=== PATIENT | female | born 1970 | race Caucasian/White ===

== ENCOUNTER 2016-10-10 10:36 | Emergency (ER) | payer MEDICAID ==
[~2016-10-10] VITALS: Ht 157.5 cm; Wt 137.0 kg
[~2016-10-10 10:36] MED LIST: DSS100 PO; OMEP20 PO
[2016-10-10] MEDS ORDERED: IBUP-1681 PO (10:53)
[2016-10-10 11:02] LABS: GLUCOSE,POINT OF CARE 109 MG/DL (70-110)
[2016-10-10] MEDS ORDERED: SODIUM CHLORIDE 0.9% 1,000 ML IV ONE (11:30)
[2016-10-10] MEDS ORDERED: ONDANSETRON HCL 4 MG/2 ML VIAL IVP ONE (11:30)
[2016-10-10] MEDS ORDERED: KETOROLAC TROMETHAMINE 30 MG/ML VIAL IVP ONE (11:30)
[2016-10-10] MEDS ORDERED: BARIUM SULFATE 0.1% SUSPENSION 450 ML BOTTLE PO ONE (11:30)
[2016-10-10 11:33] LABS: BASOPHILS # (AUTO) 0.05 K/uL (0.00-0.20); BASOPHILS % (AUTO) 0.4 % (0.0-2.0); EOSINOPHILS # (AUTO) 0.24 K/uL (0.00-0.70); EOSINOPHILS % (AUTO) 2.06 % (1.0-6.0); HEMATOCRIT 39.4 % (36-46); HEMOGLOBIN 13.1 g/dL (12.0-16.0); LYMPHOCYTES # (AUTO) 3.1 K/uL (1.0-4.8); LYMPHOCYTES % (AUTO) 26.6 % (22.0-44.0); MEAN CORPUSCULAR HEMOGLOBIN 27.7 pg (26.0-34.0); MEAN CORPUSCULAR HGB CONC 33.3 G/dL (31.0-37.0); MEAN CORPUSCULAR VOLUME 83 fL (80-100); MONOCYTES # (AUTO) 0.8 K/uL (0.1-1.0); MONOCYTES % (AUTO) 6.9 % (2.0-9.0); NEUTROPHILS # (AUTO) 7.4 K/uL (1.8-7.7); NEUTROPHILS % (AUTO) 64.1 % (40.0-70.0); PLATELET COUNT (AUTO) 299 K/uL (150-450); RED BLOOD CELL COUNT(AUTO) 4.73 MIL/uL (4.00-5.20); RED CELL DISTRIBUTION WIDTH 15.4 % (11.5-14.5); WHITE BLOOD COUNT (AUTO) 11.6 K/uL (4.5-11.0)
[2016-10-10 11:42] LABS: ANION GAP 12 mmol/L (8-16); CALCIUM, TOTAL 8.7 mg/dL (8.8-10.5); CARBON DIOXIDE 24 mmol/L (22-29); CHLORIDE 101 mmol/L (98-107); CREATININE 0.59 mg/dL (0.60-1.30); GLOMERULAR FILTR. RATE CALC > 60 mL/min (>60); POTASSIUM 3.9 mmol/L (3.5-5.1); SODIUM SERUM 137 mmol/L (136-145); UREA NITROGEN, BLOOD 11 mg/dL (7-18)
[2016-10-10 11:47] LABS: ALANINE AMINOTRANSFERASE 37 U/L (12-78); ALBUMIN 3.4 g/dL (3.4-5.0); ASPARTATE AMINOTRANSFERASE 25 U/L (15-37); BILIRUBIN,TOTAL 0.3 mg/dL (0.1-1.0); TOTAL PROTEIN, SERUM 7.7 g/dL (6.4-8.2)
[2016-10-10] MEDS ORDERED: IOVERSOL 350 MG/ML 100 ML VIAL ONE (12:13)
[2016-10-10] MEDS ORDERED: SODIUM CHLORIDE 0.9% 100 ML ONE (12:13)
[2016-10-10 13:17] LABS: APPEARANCE,URINE CLOUDY (CLEAR); GLUCOSE, URINE (UA) NEGATIVE (NEGATIVE); KETONES,URINE NEGATIVE (NEGATIVE); LEUKOCYTE ESTERASE ,URINE SMALL (NEGATIVE); OCCULT BLOOD,URINE LARGE (NEGATIVE); PROTEIN,URINE POS 1+ (NEGATIVE)
[2016-10-10 13:41] LABS: ADD UA MICROSCOPIC YES
[2016-10-10 13:46] LABS: RBC,URINE >100 /HPF (0-2); SQUAMOUS EPITHELIAL CELL,UR Few /LPF (None Seen)
[2016-10-10] MEDS ORDERED: MORPHINE SULFATE 4 MG/ML SYRINGE IVP ONE (15:15)
[2016-10-10 17:05] VITALS: BP 148/80
== END 2016-10-10 17:11 | disposition home or self-care (01) ==
LOC: EMS 10:37
DX: R10.31 Right lower quadrant pain (principal); E66.01 Morbid (severe) obesity due to excess calories; F32.9 Major depressive disorder, single episode, unspecified; K59.00 Constipation, unspecified; I10 Essential (primary) hypertension; Z90.49 Acquired absence of other specified parts of digestive tract
CPT/HCPCS: 36415; 51701; 74177; 80053; 81001; 82962; 83690; 84703; 85025; 96361; 96374; 96375; 99285; J1885; J2270; J2405; J7030; J7050; Q9967; Z7610

== ENCOUNTER 2016-12-14 18:58 | Emergency (ER) | payer MEDICAID ==
[~2016-12-14] VITALS: Ht 154.9 cm; Wt 140.4 kg
[~2016-12-14 18:58] MED LIST changes: +IBUP-1681 PO
[2016-12-14 20:01] LABS: BASOPHILS # (AUTO) 0.04 K/uL (0.00-0.20); BASOPHILS % (AUTO) 0.2 % (0.0-2.0); EOSINOPHILS # (AUTO) 0.21 K/uL (0.00-0.70); EOSINOPHILS % (AUTO) 1.35 % (1.0-6.0); HEMATOCRIT 39.4 % (36-46); HEMOGLOBIN 12.8 g/dL (12.0-16.0); LYMPHOCYTES # (AUTO) 3.2 K/uL (1.0-4.8); LYMPHOCYTES % (AUTO) 20.2 % (22.0-44.0); MEAN CORPUSCULAR HEMOGLOBIN 26.6 pg (26.0-34.0); MEAN CORPUSCULAR HGB CONC 32.6 G/dL (31.0-37.0); MEAN CORPUSCULAR VOLUME 81 fL (80-100); MONOCYTES # (AUTO) 0.9 K/uL (0.1-1.0); MONOCYTES % (AUTO) 5.8 % (2.0-9.0); NEUTROPHILS # (AUTO) 11.5 K/uL (1.8-7.7); NEUTROPHILS % (AUTO) 72.5 % (40.0-70.0); PLATELET COUNT (AUTO) 302 K/uL (150-450); RED BLOOD CELL COUNT(AUTO) 4.83 MIL/uL (4.00-5.20); RED CELL DISTRIBUTION WIDTH 15.2 % (11.5-14.5); WHITE BLOOD COUNT (AUTO) 15.9 K/uL (4.5-11.0)
[2016-12-14 20:40] LABS: ANION GAP 15 mmol/L (8-16); CALCIUM, TOTAL 9.7 mg/dL (8.8-10.5); CARBON DIOXIDE 21 mmol/L (22-29); CHLORIDE 100 mmol/L (98-107); CREATININE 0.76 mg/dL (0.60-1.30); GLOMERULAR FILTR. RATE CALC > 60 mL/min (>60); POTASSIUM 3.6 mmol/L (3.5-5.1); SODIUM SERUM 136 mmol/L (136-145); UREA NITROGEN, BLOOD 19 mg/dL (7-18)
[2016-12-14 20:44] LABS: ALANINE AMINOTRANSFERASE 36 U/L (12-78); ALBUMIN 3.8 g/dL (3.4-5.0); ASPARTATE AMINOTRANSFERASE 21 U/L (15-37); BILIRUBIN,TOTAL 0.4 mg/dL (0.1-1.0); TOTAL PROTEIN, SERUM 8.3 g/dL (6.4-8.2)
[2016-12-14] MEDS ORDERED: HYDROmorphone 2 MG/ML SYRINGE IVP ONE ×2 (22:00→23:30)
[2016-12-14] MEDS ORDERED: PANTOPRAZOLE SODIUM 40 MG/VIAL IVP ONE (22:00)
[2016-12-14] MEDS ORDERED: SODIUM CHLORIDE 0.9% 1,000 ML IV ONE ×2 (22:00)
[2016-12-14] MEDS ORDERED: ONDANSETRON HCL 4 MG/2 ML VIAL IVP ONE ×2 (22:00)
[2016-12-14] MEDS ORDERED: BARIUM SULFATE 0.1% SUSPENSION 450 ML BOTTLE PO ONE (22:00)
[2016-12-14] MEDS ORDERED: SODIUM CHLORIDE 0.9% 100 ML ONE (23:39)
[2016-12-14] MEDS ORDERED: IOVERSOL 350 MG/ML 150 ML VIAL ONE (23:39)
[2016-12-15 03:12] VITALS: BP 132/73
[2016-12-16] MEDS ORDERED: ACET1TAB12 PO (15:29)
[2016-12-16] MEDS ORDERED: METF500T4 PO (15:29)
[2016-12-16] MEDS ORDERED: ONDA4 PO (15:29)
[2016-12-16] MEDS ORDERED: LIPA1CAP29 PO (15:29)
[2016-12-16] MEDS ORDERED: LIPA1CAP31 PO (18:38)
== END 2016-12-15 03:18 | disposition home or self-care (01) ==
LOC: EMS 18:59
DX: K43.9 Ventral hernia without obstruction or gangrene (principal); R10.10 Upper abdominal pain, unspecified; E66.01 Morbid (severe) obesity due to excess calories; Z68.43 Body mass index [BMI] 50.0-59.9, adult
CPT/HCPCS: 74177; 80053; 83690; 84703; 85025; 96361; 96374; 96375; 99285; C9113; J1170; J2405; J7030; J7050; Q9967; Z7610

== ENCOUNTER 2017-06-16 11:02 | Emergency (ER) | payer MEDICAID ==
[~2017-06-16] VITALS: Ht 165.1 cm; Wt 136.4 kg
[~2017-06-16 11:02] MED LIST changes: +ACET1TAB12 PO; -DSS100 PO; -IBUP-1681 PO; +LIPA1CAP31 PO; +METF500T4 PO; -OMEP20 PO; +ONDA4 PO
[2017-06-16] MEDS ORDERED: METR500 PO (11:38)
[2017-06-16] MEDS ORDERED: BUPR100 PO (11:38)
[2017-06-16] MEDS ORDERED: ESOM20CA31 PO (11:38)
[2017-06-16 11:43] LABS: GLUCOSE,POINT OF CARE 187 MG/DL (70-110)
[2017-06-16] MEDS ORDERED: MORPHINE SULFATE 4 MG/ML SYRINGE IVP ONE (12:45)
[2017-06-16] MEDS ORDERED: BARIUM SULFATE 0.1% SUSPENSION 450 ML BOTTLE PO ONE (12:45)
[2017-06-16] MEDS ORDERED: ONDANSETRON HCL 4 MG/2 ML VIAL IVP ONE (12:45)
[2017-06-16 12:51] LABS: BASOPHILS % (AUTO) 0.6 % (0.0-2.0); EOSINOPHILS % (AUTO) 2.9 % (1.0-6.0); HEMATOCRIT 39.7 % (36-46); HEMOGLOBIN 13.2 g/dL (12.0-16.0); LYMPHOCYTES # (AUTO) 3.3 K/uL (1.0-4.8); LYMPHOCYTES % (AUTO) 24.4 % (22.0-44.0); MEAN CORPUSCULAR HEMOGLOBIN 28.2 pg (26.0-34.0); MEAN CORPUSCULAR HGB CONC 33.3 G/dL (31.0-37.0); MEAN CORPUSCULAR VOLUME 85 fL (80-100); MONOCYTES # (AUTO) 0.9 K/uL (0.1-1.0); MONOCYTES % (AUTO) 6.8 % (2.0-9.0); NEUTROPHILS % (AUTO) 65.3 % (40.0-70.0); PLATELET COUNT (AUTO) 255 K/uL (150-450); RED BLOOD CELL COUNT(AUTO) 4.68 MIL/uL (4.00-5.20); RED CELL DISTRIBUTION WIDTH 15.2 % (11.5-14.5)
[2017-06-16 12:52] LABS: APPEARANCE,URINE TURBID (CLEAR); BILIRUBIN,URINE NEGATIVE (NEGATIVE); GLUCOSE, URINE (UA) NEGATIVE (NEGATIVE); KETONES,URINE NEGATIVE (NEGATIVE); LEUKOCYTE ESTERASE ,URINE MODERATE (NEGATIVE); NITRATE,URINE POSITIVE (NEGATIVE); OCCULT BLOOD,URINE LARGE (NEGATIVE); PROTEIN,URINE SEE CONFIRM (NEGATIVE); UROBILINOGEN,URINE 0.2 mg/dL (<=1.0)
[2017-06-16 12:54] LABS: ANION GAP 7 mmol/L (8-16); CALCIUM, TOTAL 9.2 mg/dL (8.8-10.5); CARBON DIOXIDE 27 mmol/L (22-29); CHLORIDE 102 mmol/L (98-107); GLOMERULAR FILTR. RATE CALC > 60 mL/min (>60); GLUCOSE,RANDOM 167 mg/dL (70-110); SODIUM SERUM 136 mmol/L (136-145); UREA NITROGEN, BLOOD 13 mg/dL (7-18)
[2017-06-16 13:12] LABS: SULFOSALICYLIC ACID,URINE 3+ (Negative)
[2017-06-16 13:14] LABS: BACTERIA,URINE Many /HPF (None Seen); RBC,URINE 51-100 /HPF (0-2); WBC,URINE 51-100 /HPF (0-5)
[2017-06-16 13:15] LABS: ALANINE AMINOTRANSFERASE 44 U/L (12-78); ALBUMIN 3.2 g/dL (3.4-5.0); ALKALINE PHOSPHATASE 84 U/L (46-116); ASPARTATE AMINOTRANSFERASE 34 U/L (15-37); BILIRUBIN,TOTAL 0.3 mg/dL (0.1-1.0); LIPASE 99 U/L (73-393); TOTAL PROTEIN, SERUM 7.3 g/dL (6.4-8.2)
[2017-06-16 13:15] LABS: SQUAMOUS EPITHELIAL CELL,UR Many /LPF (None Seen)
[2017-06-16 13:18] LABS: MUCUS,URINE Rare LPF (None Seen)
[2017-06-16] MEDS ORDERED: IOVERSOL 350 MG/ML 150 ML VIAL ONE (13:56)
[2017-06-16] MEDS ORDERED: MORPHINE SULFATE 2 MG/ML SYRINGE IVP ONE (14:45)
[2017-06-16] MEDS ORDERED: LEVOFLOXACIN 500 MG/D5% WATER 100 ML IV ONE (15:45)
[2017-06-16] MEDS ORDERED: CefTRIAXone SODIUM 1 GM in DEXTROSE 5%-WATER 10 ML IV ONE (15:45)
[2017-06-16] MEDS ORDERED: HYDROCODONE/ACETAMINOPHEN 5-325 MG TABLET PO ONE (16:45)
[2017-06-16 17:08] VITALS: BP 126/69
== END 2017-06-16 17:19 | disposition home or self-care (01) ==
LOC: EMS 11:04
DX: N39.0 Urinary tract infection, site not specified (principal); E11.9 Type 2 diabetes mellitus without complications; E66.01 Morbid (severe) obesity due to excess calories; Z68.43 Body mass index [BMI] 50.0-59.9, adult
CPT/HCPCS: 36415; 74177; 80053; 81001; 82962; 83690; 84703; 85025; 87077; 87086; 87186; 96374; 96375; 96376; 99285; J0696; J1956; J2270 ×2; J2405; J7060; Q9967; Z7610

== ENCOUNTER 2018-01-01 09:42 | Inpatient (IN) | payer MEDICAID ==
[~2018-01-01] VITALS: Ht 160 cm; Wt 154.5 kg
[~2018-01-01 09:42] MED LIST changes: +BUPR100 PO; +ESOM20CA31 PO; -METF500T4 PO; +METF500T6 PO; +METR500 PO
[2018-01-01 10:03] LABS: GLUCOSE,POINT OF CARE 147 MG/DL (70-110)
[2018-01-01 10:20] LABS: BASOPHILS % (AUTO) 0.6 % (0.0-2.0); EOSINOPHILS % (AUTO) 2.8 % (1.0-6.0); HEMATOCRIT 41.4 % (36-46); HEMOGLOBIN 13.9 g/dL (12.0-16.0); LYMPHOCYTES # (AUTO) 2.6 K/uL (1.0-4.8); LYMPHOCYTES % (AUTO) 25.1 % (22.0-44.0); MEAN CORPUSCULAR HEMOGLOBIN 29.6 pg (26.0-34.0); MEAN CORPUSCULAR HGB CONC 33.7 G/dL (31.0-37.0); MEAN CORPUSCULAR VOLUME 88 fL (80-100); MONOCYTES # (AUTO) 0.6 K/uL (0.1-1.0); MONOCYTES % (AUTO) 5.6 % (2.0-9.0); NEUTROPHILS # (AUTO) 6.9 K/uL (1.8-7.7); NEUTROPHILS % (AUTO) 65.9 % (40.0-70.0); PLATELET COUNT (AUTO) 251 K/uL (150-450); RED BLOOD CELL COUNT(AUTO) 4.71 MIL/uL (4.00-5.20); RED CELL DISTRIBUTION WIDTH 14.5 % (11.5-14.5)
[2018-01-01 10:28] LABS: ANION GAP 7 mmol/L (8-16); CALCIUM, TOTAL 8.6 mg/dL (8.8-10.5); CARBON DIOXIDE 26 mmol/L (22-29); CHLORIDE 101 mmol/L (98-107); CREATININE 0.59 mg/dL (0.60-1.30); GLOMERULAR FILTR. RATE CALC > 60 mL/min (>60); GLUCOSE,RANDOM 150 mg/dL (70-110); POTASSIUM 4.1 mmol/L (3.5-5.1); SODIUM SERUM 134 mmol/L (136-145); UREA NITROGEN, BLOOD 8 mg/dL (7-18)
[2018-01-01 10:34] LABS: ALANINE AMINOTRANSFERASE 58 U/L (12-78); ALBUMIN 3.1 g/dL (3.4-5.0); ALKALINE PHOSPHATASE 85 U/L (46-116); ASPARTATE AMINOTRANSFERASE 41 U/L (15-37); BILIRUBIN,TOTAL 0.4 mg/dL (0.1-1.0); LIPASE 148 U/L (73-393); TOTAL PROTEIN, SERUM 7.5 g/dL (6.4-8.2)
[2018-01-01] MEDS ORDERED: MORPHINE SULFATE 4 MG/ML SYRINGE IVP ONE ×2 (11:30→13:30)
[2018-01-01] MEDS ORDERED: ONDANSETRON HCL 4 MG/2 ML VIAL IVP ONE ×2 (11:30→16:30)
[2018-01-01] MEDS ORDERED: SODIUM CHLORIDE 0.9% 1,000 ML IV ONE (11:30)
[2018-01-01 12:01] LABS: CREATINE KINASE MB 0.8 ng/mL (0-5); CREATINE KINASE, TOTAL 100 U/L (26-192)
[2018-01-01] MEDS ORDERED: METOCLOPRAMIDE HCL 5 MG/ML 2 ML VIAL IVP ONE (12:25)
[2018-01-01 12:29] LABS: APPEARANCE,URINE CLEAR (CLEAR); BILIRUBIN,URINE NEGATIVE (NEGATIVE); GLUCOSE, URINE (UA) NEGATIVE (NEGATIVE); KETONES,URINE NEGATIVE (NEGATIVE); LEUKOCYTE ESTERASE ,URINE NEGATIVE (NEGATIVE); NITRATE,URINE NEGATIVE (NEGATIVE); OCCULT BLOOD,URINE NEGATIVE (NEGATIVE); PROTEIN,URINE NEGATIVE (NEGATIVE); UROBILINOGEN,URINE 0.2 mg/dL (<=1.0)
[2018-01-01] MEDS ORDERED: BARIUM SULFATE 0.1% SUSPENSION 450 ML BOTTLE PO ONE (12:45)
[2018-01-01] MEDS ORDERED: IOVERSOL 350 MG/ML 150 ML VIAL ONE (13:56)
[2018-01-01] MEDS ORDERED: SODIUM CHLORIDE 0.9% 100 ML ONE (13:56)
[2018-01-01] MEDS ORDERED: HYDROmorphone 2 MG/ML SYRINGE IVP ONE ×2 (16:30→19:00)
[2018-01-01] MEDS ORDERED: MAGNESIUM HYDROXIDE SUSPENSION 30 ML UDCUP PO PRN (19:00)
[2018-01-01] MEDS ORDERED: ZOLPIDEM TARTRATE 5 MG TABLET PO PRN (19:00)
[2018-01-01] MEDS ORDERED: IPRATROPIUM BROMIDE 0.5 MG/2.5 ML NEB SOLUTION NEB PRN (19:00)
[2018-01-01] MEDS ORDERED: ALBUTEROL SULFATE 2.5 MG/0.5 ML NEB SOLUTION NEB PRN (19:00)
[2018-01-01] MEDS ORDERED: ACETAMINOPHEN 325 MG TABLET PO PRN ×2 (19:00→19:45)
[2018-01-01] MEDS ORDERED: BISACODYL 10 MG RECTAL RECTAL SUPPOSITORY PR PRN (19:00)
[2018-01-01] MEDS ORDERED: ONDANSETRON HCL 4 MG/2 ML VIAL IVP PRN ×2 (19:00→19:45)
[2018-01-01] MEDS ORDERED: MORPHINE SULFATE 2 MG/ML SYRINGE IVP PRN (19:00)
[2018-01-01] MEDS ORDERED: 0.9% SODIUM CHLORIDE 10 ML SYRINGE IVP PRN (19:45)
[2018-01-01] MEDS: DOCUSATE SODIUM 100 MG CAPSULE PO SCH (20:02)
[2018-01-01] MEDS: HYDROmorphone 2 MG/ML SYRINGE IVP PRN (21:34)
[2018-01-01] MEDS: HEPARIN SODIUM,PORCINE 5,000 UNITS/ML VIAL SQ SCH (23:13)
[2018-01-02] MEDS: HYDROmorphone 2 MG/ML SYRINGE IVP PRN ×5 (02:40→17:09)
[2018-01-02 07:44] LABS: GLUCOSE,POINT OF CARE 145 MG/DL (70-110)
[2018-01-02 08:46] VITALS: BP 131/89
[2018-01-02] MEDS: PANTOPRAZOLE SODIUM 40 MG/VIAL IVP SCH (09:02)
[2018-01-02] MEDS: HEPARIN SODIUM,PORCINE 5,000 UNITS/ML VIAL SQ SCH ×2 (09:02→17:07)
[2018-01-02] MEDS: DOCUSATE SODIUM 100 MG CAPSULE PO SCH ×2 (09:03→20:29)
[2018-01-02 11:37] VITALS: BP 126/86
[2018-01-02] MEDS ORDERED: LIPASE PO SCH (12:00)
[2018-01-02] MEDS ORDERED: PROTEASE PO SCH (12:00)
[2018-01-02] MEDS ORDERED: AMYLASE PO SCH (12:00)
[2018-01-02] MEDS: INSULIN LISPRO 100 UNITS/ML SQ PRN ×3 (12:54→20:32)
[2018-01-02] MEDS ORDERED: GLUCAGON,HUMAN RECOMBINANT 1 MG VIAL IM PRN (13:00)
[2018-01-02] MEDS ORDERED: PNEUMOCOCCAL VACCINE POLYVALENT 0.5 ML VIAL [PPSV23] IM ONE (13:15)
[2018-01-02 15:26] VITALS: BP 139/78
[2018-01-02] MEDS: AMYLASE/LIPASE/PROTEASE 30/6/19 MU DR CAPSULE PO SCH (17:47)
[2018-01-02 19:47] VITALS: BP 124/78
[2018-01-02] MEDS: BuPROPion HCL 100 MG TABLET PO SCH (20:29)
[2018-01-02] MEDS ORDERED: INSULIN LISPRO 100 UNITS/ML SQ PRN (21:30)
[2018-01-02] MEDS ORDERED: DEXTROSE 50%-WATER 25 GM/50 ML SYG IVP PRN (21:30)
[2018-01-02 23:24] LABS: GLUCOMETER DEV NAME(LOC) 5S 2Q; GLUCOSE,POINT OF CARE 159 MG/DL (70-110)
[2018-01-02 23:24] LABS: GLUCOMETER DEV NAME(LOC) 5S 2Q; GLUCOSE,POINT OF CARE 147 MG/DL (70-110)
[2018-01-03 00:07] VITALS: BP 145/90
[2018-01-03] MEDS: HEPARIN SODIUM,PORCINE 5,000 UNITS/ML VIAL SQ SCH ×2 (00:26→09:51)
[2018-01-03 04:18] VITALS: BP 128/83
[2018-01-03] MEDS: HYDROCODONE/ACETAMINOPHEN 5-325 MG TABLET PO PRN ×2 (06:17→10:35)
[2018-01-03 07:35] VITALS: BP 140/53
[2018-01-03] MEDS: DOCUSATE SODIUM 100 MG CAPSULE PO SCH (09:51)
[2018-01-03] MEDS: AMYLASE/LIPASE/PROTEASE 30/6/19 MU DR CAPSULE PO SCH (09:51)
[2018-01-03] MEDS: PANTOPRAZOLE SODIUM 40 MG/VIAL IVP SCH (09:51)
[2018-01-03] MEDS: BuPROPion HCL 100 MG TABLET PO SCH (09:51)
[2018-01-03 11:57] VITALS: BP 137/79
[2018-01-03] MEDS ORDERED: HYDR-4061 PO (13:57)
[2018-01-04 21:49] LABS: GLUCOMETER DEV NAME(LOC) 5N 2S; GLUCOSE,POINT OF CARE 139 MG/DL (70-110)
[2018-01-04 21:49] LABS: GLUCOMETER DEV NAME(LOC) 5N 2S; GLUCOSE,POINT OF CARE 196 MG/DL (70-110)
== END 2018-01-03 14:30 | disposition home or self-care (01) | DRG 254 ==
LOC: EMS 09:43 → 4E 01-02 00:30 → 5S 01-02 05:00
PROVIDERS: ADMIT Hospitalist; ATTEND Hospitalist
DX: K46.9 Unspecified abdominal hernia without obstruction or gangrene (principal); E66.01 Morbid (severe) obesity due to excess calories; M19.90 Unspecified osteoarthritis, unspecified site; F32.9 Major depressive disorder, single episode, unspecified; K42.9 Umbilical hernia without obstruction or gangrene; K21.9 Gastro-esophageal reflux disease without esophagitis; E11.9 Type 2 diabetes mellitus without complications; Z68.44 Body mass index [BMI] 60.0-69.9, adult; Z90.49 Acquired absence of other specified parts of digestive tract
CPT/HCPCS: 74177; 90471; 93005; C9113; J1170; J1644; J2270; J2405; J2765; J7030; J7050

== ENCOUNTER 2019-11-17 11:59 | Emergency (ER) | payer MEDICAID ==
[~2019-11-17] VITALS: Ht 152.4 cm; Wt 136.4 kg
[~2019-11-17 11:59] MED LIST changes: -ACET1TAB12 PO; -BUPR100 PO; -ESOM20CA31 PO; +HYDR-4061 PO; -LIPA1CAP31 PO; -METF500T6 PO; -METR500 PO; -ONDA4 PO
[2019-11-17] MEDS ORDERED: METF-960 PO (12:04)
[2019-11-17] MEDS ORDERED: INSULIN SQ (12:04)
[2019-11-17] MEDS ORDERED: SODIUM CHLORIDE 0.9% 1,000 ML IV ONE (12:45)
[2019-11-17] MEDS ORDERED: MORPHINE SULFATE 4 MG/ML SYRINGE IVP ONE ×2 (12:45→17:45)
[2019-11-17] MEDS ORDERED: ONDANSETRON HCL 4 MG/2 ML VIAL IVP ONE (12:45)
[2019-11-17 13:14] LABS: BASOPHILS % (AUTO) 0.9 % (0.0-2.0); HEMATOCRIT 41.3 % (36-46); HEMOGLOBIN 13.9 g/dL (12.0-16.0); LYMPHOCYTES # (AUTO) 2.5 K/uL (1.0-4.8); LYMPHOCYTES % (AUTO) 25.3 % (22.0-44.0); MEAN CORPUSCULAR HEMOGLOBIN 30.1 pg (26.0-34.0); MEAN CORPUSCULAR HGB CONC 33.6 G/dL (31.0-37.0); MEAN CORPUSCULAR VOLUME 90 fL (80-100); MONOCYTES # (AUTO) 0.7 K/uL (0.1-1.0); MONOCYTES % (AUTO) 7.3 % (2.0-9.0); NEUTROPHILS # (AUTO) 6.3 K/uL (1.8-7.7); NEUTROPHILS % (AUTO) 64.5 % (40.0-70.0); PLATELET COUNT (AUTO) 246 K/uL (150-450); RED CELL DISTRIBUTION WIDTH 13.5 % (11.5-14.5)
[2019-11-17 13:23] LABS: CREATININE 1.23 mg/dL (0.60-1.30); POTASSIUM 3.7 mmol/L (3.5-5.1)
[2019-11-17 13:29] LABS: ALBUMIN 3.3 g/dL (3.4-5.0); BILIRUBIN,TOTAL 0.3 mg/dL (0.1-1.0); TOTAL PROTEIN, SERUM 7.8 g/dL (6.4-8.2)
[2019-11-17 13:43] LABS: PROTHROMBIN TIME 10.4 SEC (9.4-11.6)
[2019-11-17 18:46] VITALS: BP 126/72
== END 2019-11-17 18:57 | disposition home or self-care (01) ==
LOC: EMS 12:02
DX: K43.9 Ventral hernia without obstruction or gangrene (principal)
CPT/HCPCS: 36415; 71045; 74176; 80053; 82962; 83690; 84484; 85025; 85610; 93005; 96374; 96375; 96376; 99285; J2270; J2405; J7030

== ENCOUNTER 2021-01-14 08:57 | Emergency (ER) | payer MEDICAID ==
[~2021-01-14] VITALS: Ht 154.9 cm; Wt 140.9 kg
[~2021-01-14 08:57] MED LIST changes: -HYDR-4061 PO; +INSULIN SQ; +METF-960 PO
[2021-01-14] MEDS ORDERED: ONDANSETRON HCL 4 MG/2 ML VIAL IVP ONE (09:15)
[2021-01-14] MEDS ORDERED: SODIUM CHLORIDE 0.9% 1,000 ML IV ONE (09:15)
[2021-01-14 09:34] LABS: COVID AG,FIA SOURCE NASOPHARYNGEAL
[2021-01-14] MEDS ORDERED: PB/HYOSCY/ATR/SCOP/LIDO/MAALOX 55 ML BOTTLE PO ONE (09:45)
[2021-01-14 10:00] LABS: INFLUENZA TYPE A NEGATIVE FOR TYPE A (NEGATIVE); INFLUENZA TYPE B NEGATIVE FOR TYPE B (NEGATIVE)
[2021-01-14 10:05] LABS: BASOPHILS % (AUTO) 0.8 % (0.0-2.0); EOSINOPHILS % (AUTO) 3.3 % (1.0-6.0); HEMATOCRIT 39.1 % (36-46); HEMOGLOBIN 12.7 g/dL (12.0-16.0); LYMPHOCYTES % (AUTO) 29.1 % (22.0-44.0); MEAN CORPUSCULAR HGB CONC 32.4 G/dL (31.0-37.0); MEAN CORPUSCULAR VOLUME 90 fL (80-100); MONOCYTES # (AUTO) 0.8 K/uL (0.1-1.0); MONOCYTES % (AUTO) 7.8 % (2.0-9.0); NEUTROPHILS # (AUTO) 6.1 K/uL (1.8-7.7); PLATELET COUNT (AUTO) 251 K/uL (150-450); RED BLOOD CELL COUNT(AUTO) 4.37 MIL/uL (4.00-5.20); RED CELL DISTRIBUTION WIDTH 14.2 % (11.5-14.5)
[2021-01-14 10:13] LABS: ANION GAP 9 mmol/L (8-16); CALCIUM, TOTAL 9.1 mg/dL (8.8-10.5); CARBON DIOXIDE 26 mmol/L (22-29); CHLORIDE 103 mmol/L (98-107); CREATININE 0.59 mg/dL (0.60-1.30); GLOMERULAR FILTR. RATE CALC > 60 mL/min (>60); GLUCOSE,RANDOM 178 mg/dL (70-110); POTASSIUM 4.6 mmol/L (3.5-5.1); SODIUM SERUM 138 mmol/L (136-145); UREA NITROGEN, BLOOD 10 mg/dL (7-18)
[2021-01-14 10:20] LABS: ALANINE AMINOTRANSFERASE 61 U/L (12-78); ALBUMIN 3.1 g/dL (3.4-5.0); ALKALINE PHOSPHATASE 80 U/L (46-116); ASPARTATE AMINOTRANSFERASE 64 U/L (15-37); BILIRUBIN,TOTAL 0.4 mg/dL (0.1-1.0); LIPASE 246 U/L (73-393); TOTAL PROTEIN, SERUM 7.2 g/dL (6.4-8.2)
[2021-01-14] MEDS ORDERED: MORPHINE SULFATE 4 MG/ML SYRINGE IVP ONE (11:00)
[2021-01-14 12:57] LABS: APPEARANCE,URINE CLEAR (CLEAR); BILIRUBIN,URINE NEGATIVE (NEGATIVE); GLUCOSE, URINE (UA) NEGATIVE (NEGATIVE); KETONES,URINE NEGATIVE (NEGATIVE); LEUKOCYTE ESTERASE ,URINE NEGATIVE (NEGATIVE); NITRATE,URINE NEGATIVE (NEGATIVE); OCCULT BLOOD,URINE NEGATIVE (NEGATIVE); PH,URINE 5.5 (5.0-8.0); PROTEIN,URINE NEGATIVE (NEGATIVE); UROBILINOGEN,URINE 0.2 mg/dL (<=1.0)
[2021-01-14 14:39] VITALS: BP 139/79
== END 2021-01-14 14:40 | disposition home or self-care (01) ==
LOC: EMS 09:00
DX: E66.01 Morbid (severe) obesity due to excess calories (principal); R10.13 Epigastric pain; R11.2 Nausea with vomiting, unspecified; F32.9 Major depressive disorder, single episode, unspecified; E11.9 Type 2 diabetes mellitus without complications; I10 Essential (primary) hypertension; Z20.822 Contact with and (suspected) exposure to COVID-19; Z68.43 Body mass index [BMI] 50.0-59.9, adult; Z90.89 Acquired absence of other organs; Z79.84 Long term (current) use of oral hypoglycemic drugs
CPT/HCPCS: 36415; 80053; 81003; 83690; 84484; 85025; 87426; 87804; 93005; 96361; 96374; 96375; 99285; J2270; J2405; J7030

== ENCOUNTER 2021-08-24 08:25 | Emergency (ER) | payer MEDICAID ==
[~2021-08-24] VITALS: Ht 152.4 cm; Wt 152.7 kg
[~2021-08-24 08:25] MED LIST changes: +METF-1211 PO; -METF-960 PO
[2021-08-24] MEDS ORDERED: KETOROLAC TROMETHAMINE 60 MG/2 ML VIAL IM ONE (08:45)
[2021-08-24] MEDS ORDERED: TRAM50TA4 PO (09:36)
[2021-08-24 10:31] VITALS: BP 143/79
== END 2021-08-24 10:32 | disposition home or self-care (01) ==
LOC: EMS 08:25
DX: M25.562 Pain in left knee (principal); M25.462 Effusion, left knee; E66.9 Obesity, unspecified; F32.9 Major depressive disorder, single episode, unspecified; E11.9 Type 2 diabetes mellitus without complications; I10 Essential (primary) hypertension; Z68.44 Body mass index [BMI] 60.0-69.9, adult; Z90.89 Acquired absence of other organs; Z79.4 Long term (current) use of insulin
CPT/HCPCS: 29505; 73564; 82962; 96372; 99283; J1885

== ENCOUNTER 2022-06-16 14:56 | Emergency (ER) | payer MEDICAID, OTHER ==
[~2022-06-16] VITALS: Ht 157.5 cm; Wt 118.2 kg
[~2022-06-16 14:56] MED LIST changes: +TRAM-559 PO
[2022-06-16] MEDS ORDERED: INSLAN SQ (15:05)
[2022-06-16] MEDS ORDERED: METF-1211 PO (15:05)
[2022-06-16] MEDS ORDERED: HYDROmorphone HCL 2 MG/ML SYRINGE IM ONE ×2 (16:45→19:45)
[2022-06-16] MEDS ORDERED: SODIUM CHLORIDE 0.9% 1,000 ML IV ONE (16:45)
[2022-06-16] MEDS ORDERED: FAMOTIDINE 40 MG in SODIUM CHLORIDE 0.9% 100 ML IV ONE (17:00)
[2022-06-16 18:29] LABS: BASOPHILS % (AUTO) 0.5 % (0.0-2.0); EOSINOPHILS % (AUTO) 2.2 % (1.0-6.0); HEMATOCRIT 39.9 % (36-46); HEMOGLOBIN 12.5 g/dL (12.0-16.0); LYMPHOCYTES # (AUTO) 3.2 K/uL (1.0-4.8); LYMPHOCYTES % (AUTO) 22.5 % (22.0-44.0); MEAN CORPUSCULAR HEMOGLOBIN 28.1 pg (26.0-34.0); MEAN CORPUSCULAR HGB CONC 31.4 G/dL (31.0-37.0); MEAN CORPUSCULAR VOLUME 89 fL (80-100); MONOCYTES # (AUTO) 0.9 K/uL (0.1-1.0); MONOCYTES % (AUTO) 6.2 % (2.0-9.0); NEUTROPHILS # (AUTO) 9.9 K/uL (1.8-7.7); NEUTROPHILS % (AUTO) 68.6 % (40.0-70.0); PLATELET COUNT (AUTO) 251 K/uL (150-450); RED BLOOD CELL COUNT(AUTO) 4.46 MIL/uL (4.00-5.20); RED CELL DISTRIBUTION WIDTH 13.9 % (11.5-14.5)
[2022-06-16 18:38] LABS: ANION GAP 9 mmol/L (8-16); CARBON DIOXIDE 26 mmol/L (22-29); CHLORIDE 103 mmol/L (98-107); GLOMERULAR FILTR. RATE CALC > 60 mL/min (>60); GLUCOSE,RANDOM 139 mg/dL (70-110); POTASSIUM 3.9 mmol/L (3.5-5.1); SODIUM SERUM 138 mmol/L (136-145); UREA NITROGEN, BLOOD 19 mg/dL (7-18)
[2022-06-16 18:40] LABS: ALANINE AMINOTRANSFERASE 35 U/L (12-78); ALBUMIN 3.4 g/dL (3.4-5.0); ALKALINE PHOSPHATASE 87 U/L (46-116); ASPARTATE AMINOTRANSFERASE 21 U/L (15-37); BILIRUBIN,TOTAL 0.2 mg/dL (0.1-1.0); LIPASE 225 U/L (73-393); TOTAL PROTEIN, SERUM 8.2 g/dL (6.4-8.2)
[2022-06-16 19:41] LABS: GLUCOSE,POINT OF CARE 78 MG/DL (70-110)
[2022-06-16] MEDS ORDERED: IOHEXOL 350 MG/ML 100 ML VIAL ONE (19:59)
[2022-06-16] MEDS ORDERED: SODIUM CHLORIDE 0.9% 100 ML ONE (19:59)
[2022-06-16 22:14] VITALS: BP 129/81
[2022-06-16 23:11] LABS: APPEARANCE,URINE CLEAR (CLEAR); BILIRUBIN,URINE NEGATIVE (NEGATIVE); GLUCOSE, URINE (UA) NEGATIVE (NEGATIVE); KETONES,URINE NEGATIVE (NEGATIVE); LEUKOCYTE ESTERASE ,URINE NEGATIVE (NEGATIVE); NITRATE,URINE POSITIVE (NEGATIVE); OCCULT BLOOD,URINE NEGATIVE (NEGATIVE); PH,URINE 5.5 (5.0-8.0); PROTEIN,URINE TRACE mg/dL (NEGATIVE); SPECIFIC GRAVITIY, URINE 1.029 (1.003-1.030); UROBILINOGEN,URINE <=1.0 mg/dL (<=1.0)
[2022-06-16] MEDS ORDERED: CEPH-558 PO (23:24)
[2022-06-16 23:26] LABS: BACTERIA,URINE Many /HPF (None Seen); RBC,URINE 0-2 /HPF (0-2); SQUAMOUS EPITHELIAL CELL,UR Few /LPF (None Seen)
[2022-06-16] MEDS ORDERED: CEPHALEXIN MONOHYDRATE 500 MG CAPSULE PO ONE (23:30)
== END 2022-06-17 01:39 | disposition home or self-care (01) ==
LOC: EDUNIT# 14:56 → EMS 15:06
DX: R10.13 Epigastric pain (principal); N39.0 Urinary tract infection, site not specified; M19.90 Unspecified osteoarthritis, unspecified site; F32.A Depression, unspecified; E11.9 Type 2 diabetes mellitus without complications; I10 Essential (primary) hypertension; E66.01 Morbid (severe) obesity due to excess calories; Z90.49 Acquired absence of other specified parts of digestive tract; Z98.890 Other specified postprocedural states
CPT/HCPCS: 99285; 74177; 96365; 76705; 80053; 81001; 82962; 83690; 84484; 85025; 36415; 87086; 87186; 93005; 96372; J3490; J1170; Q9967; J7030; J7050

== ENCOUNTER 2023-01-08 09:45 | Emergency (ER) | payer OTHER ==
[~2023-01-08] VITALS: Ht 157.5 cm; Wt 139.1 kg
[~2023-01-08 09:45] MED LIST changes: +CEPH-558 PO; +INSLAN SQ
[2023-01-08 09:54] VITALS: TEMP 99.3
[2023-01-08] MEDS ORDERED: FAMO20 PO (09:57)
[2023-01-08] MEDS ORDERED: GLIP5TAB11 PO (09:57)
[2023-01-08] MEDS ORDERED: ATOR20TA65 PO (09:57)
[2023-01-08] MEDS ORDERED: METF-446 PO (09:57)
[2023-01-08] MEDS ORDERED: LOSA-381 PO (09:57)
[2023-01-08] MEDS ORDERED: SITA25 PO (09:57)
[2023-01-08 10:51] LABS: BASOPHILS % (AUTO) 0.4 % (0.0-2.0); EOSINOPHILS % (AUTO) 2.7 % (1.0-6.0); HEMATOCRIT 43.7 % (36-46); LYMPHOCYTES # (AUTO) 3.1 K/uL (1.0-4.8); LYMPHOCYTES % (AUTO) 26.2 % (22.0-44.0); MEAN CORPUSCULAR HEMOGLOBIN 28.5 pg (26.0-34.0); MEAN CORPUSCULAR HGB CONC 32.1 G/dL (31.0-37.0); MEAN CORPUSCULAR VOLUME 89 fL (80-100); MONOCYTES # (AUTO) 0.7 K/uL (0.1-1.0); MONOCYTES % (AUTO) 6.1 % (2.0-9.0); NEUTROPHILS # (AUTO) 7.6 K/uL (1.8-7.7); NEUTROPHILS % (AUTO) 64.6 % (40.0-70.0); PLATELET COUNT (AUTO) 278 K/uL (150-450); RED BLOOD CELL COUNT(AUTO) 4.91 MIL/uL (4.00-5.20); RED CELL DISTRIBUTION WIDTH 14.4 % (11.5-14.5); WHITE BLOOD COUNT (AUTO) 11.8 K/uL (4.5-11.0)
[2023-01-08 11:01] LABS: ANION GAP 14 mmol/L (8-16); CALCIUM, TOTAL 9.5 mg/dL (8.8-10.5); CARBON DIOXIDE 23 mmol/L (22-29); CHLORIDE 97 mmol/L (98-107); CREATININE 0.69 mg/dL (0.60-1.30); GLOMERULAR FILTR. RATE CALC > 60 mL/min (>60); GLUCOSE,RANDOM 141 mg/dL (70-110); POTASSIUM 3.9 mmol/L (3.5-5.1); SODIUM SERUM 134 mmol/L (136-145); UREA NITROGEN, BLOOD 17 mg/dL (7-18)
[2023-01-08 11:07] LABS: ALANINE AMINOTRANSFERASE 18 U/L (12-78); ALBUMIN 3.5 g/dL (3.4-5.0); ALKALINE PHOSPHATASE 95 U/L (46-116); ASPARTATE AMINOTRANSFERASE 22 U/L (15-37); BILIRUBIN,TOTAL 0.6 mg/dL (0.1-1.0); LIPASE 39 U/L (16-77); TOTAL PROTEIN, SERUM 7.9 g/dL (6.4-8.2)
[2023-01-08 11:10] LABS: TROPONIN I-HIGH SENSITIVITY Less Than 4 ng/L (<51)
[2023-01-08] MEDS ORDERED: ONDANSETRON HCL 4 MG/2 ML VIAL IVP ONE (13:30)
[2023-01-08] MEDS ORDERED: ONDANSETRON HCL 4 MG TABLET PO ONE (13:45)
[2023-01-08] MEDS ORDERED: FAMOTIDINE 20 MG/2 ML VIAL IVP ONE (14:30)
[2023-01-08] MEDS ORDERED: SODIUM CHLORIDE 0.9% 1,000 ML IV ONE (14:30)
[2023-01-08] MEDS ORDERED: HYDROmorphone HCL 2 MG/ML SYRINGE IVP ONE (14:30)
[2023-01-08 17:35] VITALS: BP 146/91; PULSE 77; RESP 20
== END 2023-01-08 17:27 | disposition home or self-care (01) ==
LOC: EMS 09:47
DX: R10.13 Epigastric pain (principal); K29.70 Gastritis, unspecified, without bleeding; E11.9 Type 2 diabetes mellitus without complications; E78.00 Pure hypercholesterolemia, unspecified; I10 Essential (primary) hypertension; Z90.49 Acquired absence of other specified parts of digestive tract; Z98.890 Other specified postprocedural states
CPT/HCPCS: 99285; 74176; 96374; 76700; 96361; 96375; 80053; 82962; 83690; 84484; 85025; 36415; 93005; J3490; J1170; Q0162; J7030

== ENCOUNTER 2023-04-17 13:20 | Emergency (ER) | payer OTHER ==
[~2023-04-17] VITALS: Ht 157.5 cm; Wt 109.1 kg
[~2023-04-17 13:20] MED LIST changes: +ATOR20TA65 PO; -CEPH-558 PO; +FAMO20 PO; +GLIP5TAB15 PO; -INSULIN SQ; +LOSA-381 PO; -METF-1211 PO; +METF-446 PO; +SITA25 PO; -TRAM-559 PO
[2023-04-17] MEDS ORDERED: ONDA4TAB96 PO (13:32)
[2023-04-17] MEDS ORDERED: LISI2.5T13 PO (13:32)
[2023-04-17] MEDS ORDERED: ATOR40TA71 PO (13:32)
[2023-04-17] MEDS ORDERED: OXYC1TAB6 PO (13:32)
[2023-04-17] MEDS ORDERED: DAPA10TA PO (13:32)
[2023-04-17 13:54] LABS: BASOPHILS % (AUTO) 0.2 % (0.0-2.0); EOSINOPHILS % (AUTO) 2.5 % (1.0-6.0); HEMATOCRIT 34.7 % (36-46); HEMOGLOBIN 11.4 g/dL (12.0-16.0); LYMPHOCYTES # (AUTO) 1.6 K/uL (1.0-4.8); LYMPHOCYTES % (AUTO) 16.4 % (22.0-44.0); MEAN CORPUSCULAR HEMOGLOBIN 29.5 pg (26.0-34.0); MEAN CORPUSCULAR HGB CONC 32.8 G/dL (31.0-37.0); MEAN CORPUSCULAR VOLUME 90 fL (80-100); MONOCYTES # (AUTO) 0.7 K/uL (0.1-1.0); MONOCYTES % (AUTO) 6.6 % (2.0-9.0); NEUTROPHILS # (AUTO) 7.3 K/uL (1.8-7.7); NEUTROPHILS % (AUTO) 74.3 % (40.0-70.0); PLATELET COUNT (AUTO) 323 K/uL (150-450); RED BLOOD CELL COUNT(AUTO) 3.86 MIL/uL (4.00-5.20); RED CELL DISTRIBUTION WIDTH 13.8 % (11.5-14.5); WHITE BLOOD COUNT (AUTO) 9.9 K/uL (4.5-11.0)
[2023-04-17 14:01] LABS: ANION GAP 8 mmol/L (8-16); CALCIUM, TOTAL 8.7 mg/dL (8.8-10.5); CARBON DIOXIDE 29 mmol/L (22-29); CHLORIDE 98 mmol/L (98-107); CREATININE 0.88 mg/dL (0.60-1.30); GLOMERULAR FILTR. RATE CALC > 60 mL/min (>60); GLUCOSE,RANDOM 296 mg/dL (70-110); POTASSIUM 3.7 mmol/L (3.5-5.1); SODIUM SERUM 134 mmol/L (136-145); UREA NITROGEN, BLOOD 10 mg/dL (7-18)
[2023-04-17 14:08] LABS: ALANINE AMINOTRANSFERASE 34 U/L (12-78); ALBUMIN 2.7 g/dL (3.4-5.0); ALKALINE PHOSPHATASE 133 U/L (46-116); ASPARTATE AMINOTRANSFERASE 23 U/L (15-37); BILIRUBIN,TOTAL 0.4 mg/dL (0.1-1.0); LIPASE 47 U/L (16-77); TOTAL PROTEIN, SERUM 7.4 g/dL (6.4-8.2)
[2023-04-17 14:18] LABS: TROPONIN I-HIGH SENSITIVITY 5 ng/L (<51)
[2023-04-17] MEDS ORDERED: IOHEXOL 9 MG/ML 500 ML BOTTLE PO ONE (15:30)
[2023-04-17] MEDS ORDERED: ONDANSETRON HCL 4 MG/2 ML VIAL IVP ONE (15:30)
[2023-04-17] MEDS ORDERED: MORPHINE SULFATE 4 MG/ML SYRINGE IVP ONE (15:30)
[2023-04-17] MEDS ORDERED: IOHEXOL 350 MG/ML 100 ML VIAL ONE ×2 (15:53)
[2023-04-17] MEDS ORDERED: SODIUM CHLORIDE 0.9% 100 ML ONE (15:54)
[2023-04-17] MEDS ORDERED: SODIUM PHOSPHATE,MONO-DIBASIC 133 ML ENEMA PR ONE (18:15)
[2023-04-17] MEDS ORDERED: DOCUSATE SODIUM 100 MG CAPSULE PO ONE (19:00)
[2023-04-17 19:19] VITALS: BP 145/73; PULSE 96; RESP 18; TEMP 98.3
[2023-04-17] MEDS ORDERED: DOCU-385 PO (19:20)
[2023-04-17] MEDS ORDERED: PROCTOCM TP (19:20)
== END 2023-04-17 19:20 | disposition home or self-care (01) ==
LOC: EMS 13:20
DX: R10.9 Unspecified abdominal pain (principal); K59.00 Constipation, unspecified; K64.9 Unspecified hemorrhoids; E11.9 Type 2 diabetes mellitus without complications; E78.00 Pure hypercholesterolemia, unspecified; I10 Essential (primary) hypertension; K21.9 Gastro-esophageal reflux disease without esophagitis; E66.01 Morbid (severe) obesity due to excess calories; Z90.49 Acquired absence of other specified parts of digestive tract
CPT/HCPCS: 99285; 74177; 96374; 96375; 80053; 83690; 84484; 85025; 36415; J2270; J2405; Q9967; J7050

== ENCOUNTER 2023-12-29 14:04 | Emergency (ER) | payer OTHER ==
[~2023-12-29] VITALS: Ht 152.4 cm; Wt 137.7 kg
[~2023-12-29 14:04] MED LIST changes: -ATOR20TA65 PO; +ATOR40TA71 PO; +DAPA10TA PO; +DOCU-385 PO; +LISI2.5T13 PO; -LOSA-381 PO; +ONDA4TAB96 PO; +OXYC1TAB6 PO; +PROCTOCM TP
[2023-12-29 14:10] VITALS: TEMP 98
[2023-12-29] MEDS ORDERED: SITA100 PO (14:14)
[2023-12-29 14:44] LABS: BASOPHILS % (AUTO) 0.9 % (0.0-2.0); EOSINOPHILS % (AUTO) 2.3 % (1.0-6.0); HEMATOCRIT 41.5 % (36-46); HEMOGLOBIN 13.5 g/dL (12.0-16.0); LYMPHOCYTES # (AUTO) 2.9 K/uL (1.0-4.8); LYMPHOCYTES % (AUTO) 22.6 % (22.0-44.0); MEAN CORPUSCULAR HEMOGLOBIN 28.6 pg (26.0-34.0); MEAN CORPUSCULAR HGB CONC 32.6 G/dL (31.0-37.0); MEAN CORPUSCULAR VOLUME 88 fL (80-100); MONOCYTES # (AUTO) 0.8 K/uL (0.1-1.0); MONOCYTES % (AUTO) 5.9 % (2.0-9.0); NEUTROPHILS # (AUTO) 8.9 K/uL (1.8-7.7); NEUTROPHILS % (AUTO) 68.3 % (40.0-70.0); PLATELET COUNT (AUTO) 239 K/uL (150-450); RED BLOOD CELL COUNT(AUTO) 4.73 MIL/uL (4.00-5.20); RED CELL DISTRIBUTION WIDTH 14.6 % (11.5-14.5)
[2023-12-29 14:47] LABS: CREATININE 1.01 mg/dL (0.60-1.30); POTASSIUM 4.3 mmol/L (3.5-5.1)
[2023-12-29 15:06] LABS: TROPONIN I-HIGH SENSITIVITY 4 ng/L (<51)
[2023-12-29] MEDS ORDERED: 0.9% SODIUM CHLORIDE 10 ML SYRINGE IVP ONE (16:25)
[2023-12-29] MEDS ORDERED: SODIUM CHLORIDE 0.9% 100 ML ONE (16:26)
[2023-12-29] MEDS ORDERED: IOHEXOL 350 MG/ML 100 ML VIAL ONE (16:26)
[2023-12-29] MEDS: MORPHINE SULFATE 4 MG/ML SYRINGE IVP ONE ×2 (16:26→19:14)
[2023-12-29 19:13] LABS: APPEARANCE,URINE CLEAR (CLEAR); BILIRUBIN,URINE NEGATIVE (NEGATIVE); COLOR,URINE LIGHT YELLOW (YELLOW); GLUCOSE, URINE (UA) >=1000 mg/dL (NEGATIVE); KETONES,URINE NEGATIVE (NEGATIVE); LEUKOCYTE ESTERASE ,URINE NEGATIVE (NEGATIVE); NITRATE,URINE NEGATIVE (NEGATIVE); OCCULT BLOOD,URINE NEGATIVE (NEGATIVE); PROTEIN,URINE TRACE mg/dL (NEGATIVE); UROBILINOGEN,URINE <=1.0 mg/dL (<=1.0)
[2023-12-29] MEDS: ONDANSETRON HCL 4 MG/2 ML VIAL IVP ONE (19:13)
[2023-12-29] MEDS: DICYCLOMINE HCL 10 MG CAPSULE PO ONE (19:38)
[2023-12-29 20:10] LABS: BACTERIA,URINE None Seen /HPF (None Seen); RBC,URINE None Seen /HPF (0-2); WBC,URINE None Seen /HPF (0-5)
[2023-12-29 20:11] LABS: SQUAMOUS EPITHELIAL CELL,UR Few /LPF (None Seen); YEAST,URINE Few /HPF (None Seen)
[2023-12-29] MEDS ORDERED: ONDA-104 PO (20:16)
[2023-12-29] MEDS ORDERED: DICY-1 PO (20:16)
[2023-12-29 20:58] VITALS: BP 121/69; PULSE 75; RESP 18
== END 2023-12-29 21:01 | disposition home or self-care (01) ==
LOC: EMS 14:07
DX: K46.9 Unspecified abdominal hernia without obstruction or gangrene (principal); E11.9 Type 2 diabetes mellitus without complications; E78.00 Pure hypercholesterolemia, unspecified; I10 Essential (primary) hypertension; Z90.49 Acquired absence of other specified parts of digestive tract; Z98.890 Other specified postprocedural states
CPT/HCPCS: 80048; 81001; 83690; 84484; 85025; 36415; 74177; 99285; 93005; 96376; 96374; 96375; Q9967; J2270; J2405; J7050; X7700

== ENCOUNTER 2024-08-09 15:36 | Emergency (ER) | payer OTHER ==
[~2024-08-09] VITALS: Ht 154.9 cm; Wt 135.4 kg
[~2024-08-09 15:36] MED LIST changes: -DAPA10TA PO; +DICY-1 PO; -DOCU-385 PO; -FAMO20 PO; -INSLAN SQ; +ONDA-104 PO; -ONDA4TAB96 PO; -OXYC1TAB6 PO; -PROCTOCM TP; +SITA100 PO; -SITA25 PO
[2024-08-09] MEDS ORDERED: LOSA-381 PO (15:43)
[2024-08-09] MEDS ORDERED: FAMO20 PO (15:43)
[2024-08-09] MEDS ORDERED: DAPA10TA PO (15:43)
[2024-08-09 16:01] LABS: GLUCOMETER DEV NAME(LOC) ERT.6; GLUCOSE,POINT OF CARE 190 MG/DL (70-110)
[2024-08-09] MEDS: ONDANSETRON HCL 4 MG/2 ML VIAL IVP ONE (17:04)
[2024-08-09] MEDS: SODIUM CHLORIDE 0.9% 1,000 ML IV ONE (17:04)
[2024-08-09] MEDS: MORPHINE SULFATE 4 MG/ML SYRINGE IVP ONE (17:04)
[2024-08-09 17:15] LABS: BASOPHILS % (AUTO) 0.7 % (0.0-2.0); EOSINOPHILS % (AUTO) 2.5 % (1.0-6.0); HEMATOCRIT 46.7 % (36-46); HEMOGLOBIN 14.9 g/dL (12.0-16.0); LYMPHOCYTES # (AUTO) 2.3 K/uL (1.0-4.8); LYMPHOCYTES % (AUTO) 18.9 % (22.0-44.0); MEAN CORPUSCULAR HEMOGLOBIN 28.5 pg (26.0-34.0); MEAN CORPUSCULAR HGB CONC 31.8 G/dL (31.0-37.0); MEAN CORPUSCULAR VOLUME 90 fL (80-100); MONOCYTES % (AUTO) 8.1 % (2.0-9.0); NEUTROPHILS # (AUTO) 8.6 K/uL (1.8-7.7); NEUTROPHILS % (AUTO) 69.8 % (40.0-70.0); PLATELET COUNT (AUTO) 250 K/uL (150-450); RED BLOOD CELL COUNT(AUTO) 5.21 MIL/uL (4.00-5.20); RED CELL DISTRIBUTION WIDTH 14.3 % (11.5-14.5); WHITE BLOOD COUNT (AUTO) 12.4 K/uL (4.5-11.0)
[2024-08-09 17:25] LABS: ANION GAP 11 mmol/L (8-16); CALCIUM, TOTAL 9.5 mg/dL (8.8-10.5); CARBON DIOXIDE 21 mmol/L (22-29); CHLORIDE 101 mmol/L (98-107); GLOMERULAR FILTR. RATE CALC 58 mL/min (>60); GLUCOSE,RANDOM 165 mg/dL (70-110); POTASSIUM 4.2 mmol/L (3.5-5.1); SODIUM SERUM 133 mmol/L (136-145); UREA NITROGEN, BLOOD 25 mg/dL (7-18)
[2024-08-09 17:33] LABS: LIPASE 105 U/L (16-77)
[2024-08-09 17:34] LABS: LACTIC ACID 1.2 mmol/L (0.4-2.0); TROPONIN I-HIGH SENSITIVITY 4 ng/L (<51)
[2024-08-09 18:40] LABS: APPEARANCE,URINE CLEAR (CLEAR); BILIRUBIN,URINE NEGATIVE (NEGATIVE); COLOR,URINE YELLOW (YELLOW); GLUCOSE, URINE (UA) >=1000 mg/dL (NEGATIVE); KETONES,URINE NEGATIVE (NEGATIVE); LEUKOCYTE ESTERASE ,URINE NEGATIVE (NEGATIVE); NITRATE,URINE NEGATIVE (NEGATIVE); OCCULT BLOOD,URINE NEGATIVE (NEGATIVE); PH,URINE 5.5 (5.0-8.0); PROTEIN,URINE 30-70 mg/dL (NEGATIVE); SPECIFIC GRAVITIY, URINE 1.031 (1.003-1.030); UROBILINOGEN,URINE <=1.0 mg/dL (<=1.0)
[2024-08-09] MEDS: OMEPRAZOLE 20 MG CAPSULE PO ONE (18:50)
[2024-08-09] MEDS: ACETAMINOPHEN 500 MG TABLET PO ONE (18:50)
[2024-08-09 19:01] LABS: BACTERIA,URINE Rare /HPF (None Seen); RBC,URINE None Seen /HPF (0-2); SQUAMOUS EPITHELIAL CELL,UR Rare /LPF (None Seen); WBC,URINE None Seen /HPF (0-5); YEAST,URINE Few /HPF (None Seen)
[2024-08-09] MEDS ORDERED: ACET-66 PO (20:57)
[2024-08-09] MEDS ORDERED: MAG30ORA11 PO (20:57)
[2024-08-09] MEDS ORDERED: OMEP-148 PO (20:57)
[2024-08-09] MEDS ORDERED: ONDA-104 PO (21:02)
[2024-08-09 21:13] VITALS: BP 141/77; PULSE 82; RESP 20; TEMP 97.3; O2SAT 99
== END 2024-08-09 21:23 | disposition home or self-care (01) ==
LOC: EMS 15:36
DX: R10.10 Upper abdominal pain, unspecified (principal); K21.9 Gastro-esophageal reflux disease without esophagitis; R11.10 Vomiting, unspecified; R19.7 Diarrhea, unspecified; E11.9 Type 2 diabetes mellitus without complications; I10 Essential (primary) hypertension; E78.00 Pure hypercholesterolemia, unspecified; Z90.49 Acquired absence of other specified parts of digestive tract; Z79.84 Long term (current) use of oral hypoglycemic drugs; Z79.899 Other long term (current) drug therapy; Z98.890 Other specified postprocedural states
CPT/HCPCS: 99285; 74176; 96374; 71045; 96361; 96375; 80048; 81001; 82962; 83605; 83690; 84484; 85025; 36415; 93005; J2270; J2405; J7030